=== PATIENT | female | born 1995 | race Caucasian/White ===

== ENCOUNTER → 2022-02-18 10:05 | Outpatient (BNVA) | payer OTHER, SELFPAY | PROVIDERS: PCP Nurse Practitioner Community Health; Visit Provider Surgery | DX: K62.9 Disease of anus and rectum, unspecified (principal) | CPT/HCPCS: 99202 ==

== ENCOUNTER 2022-03-22 15:01 | Outpatient (REF) | payer OTHER, SELFPAY | END 2022-03-22 15:02 | disposition home or self-care (01) | LOC: HO.LAB 15:01 | PROVIDERS: PCP Nurse Practitioner Community Health; Referring Provider Nurse Practitioner Community Health; Visit Provider Surgery | DX: K62.9 Disease of anus and rectum, unspecified (principal) | CPT/HCPCS: 11402; 11422; 88305 ==